=== PATIENT | female | born 1950 | race Asian ===

== ENCOUNTER 2020-04-13 08:04 | Inpatient (IN) | payer OTHER, MEDICAID, SELFPAY ==
[~2020-04-13] VITALS: Ht 157.5 cm; Wt 48.2 kg
[2020-04-13 08:04] VITALS: BP_SYST 114
[2020-04-13] MEDS ORDERED: ONDANSETRON HCL 4 MG/2 ML VIAL IVP ONE (08:30)
[2020-04-13] MEDS ORDERED: PANTOPRAZOLE SODIUM 40 MG/VIAL (PROTONIX) IVP ONE (08:30)
[2020-04-13 08:51] LABS: BASOPHILS % (AUTO) 0.6 % (0.0-2.0); EOSINOPHILS # (AUTO) 0.1 K/uL (0.0-0.4); EOSINOPHILS % (AUTO) 1.2 % (0.0-4.0); HEMOGLOBIN 7.1 g/dL (12.0-16.0); LYMPHOCYTES # (AUTO) 0.7 K/uL (1.0-5.5); LYMPHOCYTES % (AUTO) 13.5 % (20.5-51.5); MEAN CORPUSCULAR HEMOGLOBIN 36 pg (27-31); MEAN CORPUSCULAR HGB CONC 32 % (32-36); MEAN CORPUSCULAR VOLUME 113 fL (79.0-98.0); MONOCYTES # (AUTO) 0.4 K/uL (0.0-1.0); MONOCYTES % (AUTO) 7.9 % (1.7-9.3); NEUTROPHILS # (AUTO) 3.7 K/uL (1.8-7.7); NEUTROPHILS % (AUTO) 76.8 % (40.0-70.0); RED CELL DISTRIBUTION WIDTH 16.5 % (9.0-15.0); WHITE BLOOD COUNT (AUTO) 4.8 K/uL (4.8-10.8)
[2020-04-13 09:07] LABS: CALCIUM 9.8 mg/dL (8.4-11.0)
[2020-04-13 09:08] LABS: INR 1.3 (0.8-1.2); PROTHROMBIN TIME 13.2 SECS (9.5-12.5)
[2020-04-13 09:11] LABS: POTASSIUM 6.3 mmol/L (3.5-5.1)
[2020-04-13 09:12] LABS: CREATININE 8.41 mg/dL (0.55-1.30)
[2020-04-13 09:13] LABS: ALBUMIN 2.8 g/dL (3.4-4.8); TOTAL BILIRUBIN 0.5 mg/dL (0.0-1.0)
[2020-04-13 09:17] LABS: RED BLOOD CELL COUNT(AUTO) 1.96 MIL/uL (4.2-6.2)
[2020-04-13 09:20] LABS: PLATELET COUNT (AUTO) 71 K/uL (130-430)
[2020-04-13] MEDS ORDERED: SODIUM POLYSTYRENE SULFONATE 15 GM/60 ML UDBTL PO ONE (10:00)
[2020-04-13] MEDS ORDERED: DEXTROSE 50% JECT 50 ML DISP.SYRIN IVP ONE (10:00)
[2020-04-13] MEDS ORDERED: INSULIN REGULAR, HUMAN 10 UNITS/0.1 ML INJ IVP ONE (10:00)
[2020-04-13] MEDS ORDERED: PANTOPRAZOLE SODIUM 40 MG/VIAL (PROTONIX) ONE (11:31)
[2020-04-13] MEDS ORDERED: ONDANSETRON HCL 4 MG/2 ML VIAL ONE (11:31)
[2020-04-13] MEDS ORDERED: OCTREOTIDE ACETATE 50 MCG/ML AMP IV ONE (12:00)
[2020-04-13] MEDS: cefTRIAXone 1 GM IVPB PREMIX 50 ML IV SCH (12:56)
[2020-04-13] MEDS: OCTREOTIDE ACETATE 1,250 MCG in NS 250 ML IV SCH (12:59)
[2020-04-13] MEDS ORDERED: NACL 0.9% 1,000 ML IV ONE (13:30)
[2020-04-13] MEDS ORDERED: MORPHINE 4 MG/ML INJ. SYRINGE IVP PRN (14:15)
[2020-04-13] MEDS ORDERED: NALOXONE HCL 0.4 MG/ML AMP (NARCAN) IVP PRN (14:15)
[2020-04-13] MEDS ORDERED: LORazepam 2 MG/ML VIAL IVP PRN (14:15)
[2020-04-13] MEDS ORDERED: ONDANSETRON HCL 4 MG/2 ML VIAL IVP PRN (14:15)
[2020-04-13] MEDS ORDERED: MORPHINE 2 MG/ML INJ. SYRINGE IVP PRN (14:15)
[2020-04-13] MEDS: PANTOPRAZOLE SODIUM 40 MG in NS 50 ML IV SCH ×2 (15:03→20:22)
[2020-04-13] MEDS: EPOETIN ALFA 10,000 UNITS/ML VIAL SUBCUT SCH (18:17)
[2020-04-14] MEDS: PANTOPRAZOLE SODIUM 40 MG in NS 50 ML IV SCH ×5 (01:03→19:58)
[2020-04-14 08:23] LABS: BASOPHILS % (AUTO) 0.8 % (0.0-2.0); EOSINOPHILS # (AUTO) 0.1 K/uL (0.0-0.4); EOSINOPHILS % (AUTO) 1.7 % (0.0-4.0); LYMPHOCYTES # (AUTO) 0.6 K/uL (1.0-5.5); LYMPHOCYTES % (AUTO) 18.8 % (20.5-51.5); MEAN CORPUSCULAR HEMOGLOBIN 35 pg (27-31); MEAN CORPUSCULAR HGB CONC 33 % (32-36); MEAN CORPUSCULAR VOLUME 106 fL (79.0-98.0); MONOCYTES # (AUTO) 0.2 K/uL (0.0-1.0); MONOCYTES % (AUTO) 6.9 % (1.7-9.3); NEUTROPHILS # (AUTO) 2.5 K/uL (1.8-7.7); NEUTROPHILS % (AUTO) 71.8 % (40.0-70.0); PLATELET COUNT (AUTO) 63 K/uL (130-430); WHITE BLOOD COUNT (AUTO) 3.4 K/uL (4.8-10.8)
[2020-04-14] MEDS ORDERED: SIMETHICONE 40 MG/0.6 ML ML ONE (08:32)
[2020-04-14 08:34] LABS: RED BLOOD CELL COUNT(AUTO) 1.98 MIL/uL (4.2-6.2)
[2020-04-14 08:35] LABS: HEMATOCRIT 21.1 % (36-48); HEMOGLOBIN 6.9 g/dL (12.0-16.0)
[2020-04-14 08:40] LABS: INR 1.6 (0.8-1.2); PROTHROMBIN TIME 15.9 SECS (9.5-12.5)
[2020-04-14 08:42] LABS: ALBUMIN 2.3 g/dL (3.4-4.8); CALCIUM 8.2 mg/dL (8.4-11.0); CREATININE 4.59 mg/dL (0.55-1.30); PHOSPHORUS 4.6 mg/dL (2.7-4.5); POTASSIUM 3.5 mmol/L (3.5-5.1); TOTAL BILIRUBIN 0.4 mg/dL (0.0-1.0)
[2020-04-14] MEDS ORDERED: MIDAZOLAM HCL 5 MG/5 ML VIAL ONE (08:42)
[2020-04-14] MEDS ORDERED: MEPERIDINE HCL/PF 100 MG/ML AMP ONE (08:47)
[2020-04-14] MEDS: cefTRIAXone 1 GM IVPB PREMIX 50 ML IV SCH (10:13)
[2020-04-14 12:04] VITALS: BP_SYST 142
[2020-04-14 12:07] VITALS: BP_SYST 142
[2020-04-14 15:33] VITALS: BP_SYST 140
[2020-04-14] MEDS: OCTREOTIDE ACETATE 1,250 MCG in NS 250 ML IV SCH (17:51)
[2020-04-14 18:51] LABS: INR 1.5 (0.8-1.2); PROTHROMBIN TIME 15.5 SECS (9.5-12.5)
[2020-04-14 20:00] VITALS: BP_SYST 138
[2020-04-15 00:12] VITALS: BP_SYST 136
[2020-04-15 07:26] LABS: ALBUMIN 2.8 g/dL (3.4-4.8); CALCIUM 8.9 mg/dL (8.4-11.0); CREATININE 3.9 mg/dL (0.55-1.30); PHOSPHORUS 4.8 mg/dL (2.7-4.5); TOTAL BILIRUBIN 0.5 mg/dL (0.0-1.0)
[2020-04-15 07:27] LABS: BASOPHILS % (AUTO) 0.8 % (0.0-2.0); EOSINOPHILS # (AUTO) 0.1 K/uL (0.0-0.4); HEMATOCRIT 22.5 % (36-48); HEMOGLOBIN 7.8 g/dL (12.0-16.0); LYMPHOCYTES # (AUTO) 0.6 K/uL (1.0-5.5); LYMPHOCYTES % (AUTO) 14.1 % (20.5-51.5); MEAN CORPUSCULAR HEMOGLOBIN 36 pg (27-31); MEAN CORPUSCULAR HGB CONC 35 % (32-36); MEAN CORPUSCULAR VOLUME 102 fL (79.0-98.0); MONOCYTES # (AUTO) 0.3 K/uL (0.0-1.0); MONOCYTES % (AUTO) 6.8 % (1.7-9.3); NEUTROPHILS % (AUTO) 76.3 % (40.0-70.0); RED BLOOD CELL COUNT(AUTO) 2.21 MIL/uL (4.2-6.2); RED CELL DISTRIBUTION WIDTH 19.6 % (9.0-15.0); WHITE BLOOD COUNT (AUTO) 3.9 K/uL (4.8-10.8)
[2020-04-15 08:07] VITALS: BP_SYST 156
[2020-04-15 08:26] LABS: PLATELET COUNT (AUTO) 66 K/uL (130-430)
[2020-04-15] MEDS ORDERED: FERROUS SULFATE 325 MG TABLET.DR PO ONE (09:00)
[2020-04-15] MEDS ORDERED: PANTOPRAZOLE SODIUM 40 MG/VIAL (PROTONIX) IVP ONE (09:00)
[2020-04-15] MEDS ORDERED: PROPRANOLOL HCL 10 MG TABLET (INDERAL) PO ONE (09:00)
[2020-04-15] MEDS: cefTRIAXone 1 GM IVPB PREMIX 50 ML IV SCH (09:19)
[2020-04-15] MEDS: EPOETIN ALFA 10,000 UNITS/ML VIAL SUBCUT SCH (09:19)
[2020-04-15 12:00] VITALS: BP_SYST 154
[2020-04-15 16:00] VITALS: BP_SYST 158
[2020-04-15 19:55] VITALS: BP_SYST 159
[2020-04-15] MEDS: FERROUS SULFATE 325 MG TABLET.DR PO SCH (20:56)
[2020-04-15] MEDS: PROPRANOLOL HCL 10 MG TABLET (INDERAL) PO SCH (20:57)
[2020-04-16 00:34] VITALS: BP_SYST 151
[2020-04-16] MEDS: OCTREOTIDE ACETATE 1,250 MCG in NS 250 ML IV SCH (00:38)
[2020-04-16 08:00] VITALS: BP_SYST 147
[2020-04-16] MEDS: PANTOPRAZOLE SODIUM 40 MG/VIAL (PROTONIX) IVP SCH (10:03)
[2020-04-16] MEDS: cefTRIAXone 1 GM IVPB PREMIX 50 ML IV SCH (10:03)
[2020-04-16] MEDS: FERROUS SULFATE 325 MG TABLET.DR PO SCH ×2 (10:04→22:27)
[2020-04-16] MEDS: PROPRANOLOL HCL 10 MG TABLET (INDERAL) PO SCH ×2 (10:05→22:25)
[2020-04-16 11:35] VITALS: BP_SYST 150
[2020-04-16] MEDS ORDERED: LACTOBACILLUS RHAMNOSUS GG 1 CAP CAPSULE PO ONE (15:00)
[2020-04-16] MEDS ORDERED: metroNIDAZOLE 250 MG TABLET PO ONE (15:00)
[2020-04-16 15:46] VITALS: BP_SYST 165
[2020-04-16 16:19] LABS: HEMATOCRIT 23.7 % (36-48); HEMOGLOBIN 7.7 g/dL (12.0-16.0); MEAN CORPUSCULAR HEMOGLOBIN 34 pg (27-31); MEAN CORPUSCULAR HGB CONC 32 % (32-36); MEAN CORPUSCULAR VOLUME 104 fL (79.0-98.0); PLATELET COUNT (AUTO) 68 K/uL (130-430); RED BLOOD CELL COUNT(AUTO) 2.28 MIL/uL (4.2-6.2); WHITE BLOOD COUNT (AUTO) 3.7 K/uL (4.8-10.8)
[2020-04-16 16:30] LABS: ALBUMIN 2.7 g/dL (3.4-4.8); CALCIUM 8.9 mg/dL (8.4-11.0); CREATININE 6.24 mg/dL (0.55-1.30); PHOSPHORUS 6.9 mg/dL (2.7-4.5); POTASSIUM 5.1 mmol/L (3.5-5.1); TOTAL BILIRUBIN 0.4 mg/dL (0.0-1.0)
[2020-04-16 16:39] LABS: BAND % (MANUAL) 0 % (0-6); BASOPHILS % (MANUAL) 0 % (0-2); EOSINOPHILS % (MANUAL) 1 % (0-7); LYMPHOCYTES % (MANUAL) 17 % (20-46); MONOCYTES % (MANUAL) 4 % (0-11)
[2020-04-16] MEDS: EPOETIN ALFA 10,000 UNITS/ML VIAL SUBCUT SCH (16:59)
[2020-04-16 20:41] VITALS: BP_SYST 133
[2020-04-16] MEDS: LACTOBACILLUS RHAMNOSUS GG 1 CAP CAPSULE PO SCH (22:24)
[2020-04-16] MEDS: metroNIDAZOLE 250 MG TABLET PO SCH (22:24)
[2020-04-17] VITALS: BP_SYST 121
[2020-04-17] MEDS: metroNIDAZOLE 250 MG TABLET PO SCH ×3 (07:13→21:09)
[2020-04-17 07:40] LABS: BASOPHILS % (AUTO) 0.6 % (0.0-2.0); EOSINOPHILS # (AUTO) 0.1 K/uL (0.0-0.4); EOSINOPHILS % (AUTO) 3.9 % (0.0-4.0); HEMATOCRIT 25.6 % (36-48); HEMOGLOBIN 8.6 g/dL (12.0-16.0); LYMPHOCYTES # (AUTO) 0.4 K/uL (1.0-5.5); LYMPHOCYTES % (AUTO) 12.7 % (20.5-51.5); MEAN CORPUSCULAR HEMOGLOBIN 35 pg (27-31); MEAN CORPUSCULAR HGB CONC 34 % (32-36); MEAN CORPUSCULAR VOLUME 103 fL (79.0-98.0); MONOCYTES # (AUTO) 0.2 K/uL (0.0-1.0); NEUTROPHILS # (AUTO) 2.5 K/uL (1.8-7.7); PLATELET COUNT (AUTO) 66 K/uL (130-430); RED BLOOD CELL COUNT(AUTO) 2.48 MIL/uL (4.2-6.2); RED CELL DISTRIBUTION WIDTH 18.8 % (9.0-15.0); WHITE BLOOD COUNT (AUTO) 3.2 K/uL (4.8-10.8)
[2020-04-17 07:54] LABS: CALCIUM 8.9 mg/dL (8.4-11.0); POTASSIUM 4.2 mmol/L (3.5-5.1)
[2020-04-17 07:55] LABS: C-REACTIVE PROTEIN QUANT 0.8 mg/dL (0-0.5); CREATININE 4.12 mg/dL (0.55-1.30)
[2020-04-17 07:57] LABS: NEUTROPHILS % (AUTO) 76.8 % (40.0-70.0)
[2020-04-17 08:19] VITALS: BP_SYST 148
[2020-04-17] MEDS: cefTRIAXone 1 GM IVPB PREMIX 50 ML IV SCH (08:37)
[2020-04-17] MEDS: PANTOPRAZOLE SODIUM 40 MG/VIAL (PROTONIX) IVP SCH (08:37)
[2020-04-17] MEDS: LACTOBACILLUS RHAMNOSUS GG 1 CAP CAPSULE PO SCH ×2 (08:38→21:09)
[2020-04-17] MEDS: FERROUS SULFATE 325 MG TABLET.DR PO SCH ×2 (08:38→21:09)
[2020-04-17] MEDS: PROPRANOLOL HCL 10 MG TABLET (INDERAL) PO SCH ×2 (08:38→21:09)
[2020-04-17 10:07] LABS: ERYTHROCYTE SEDIMENTATION RATE 27 MM/HR (0-20)
[2020-04-17 11:39] VITALS: BP_SYST 100
[2020-04-17] MEDS ORDERED: FLA250 PO (14:20)
[2020-04-17] MEDS ORDERED: Ferrous Sulfate PO (14:20)
[2020-04-17] MEDS ORDERED: LACT1CAP57 PO (14:20)
[2020-04-17] MEDS ORDERED: EPOE1VIA13 SUBCUT (14:20)
[2020-04-17] MEDS ORDERED: PROP10TA10 PO (14:20)
[2020-04-17] MEDS ORDERED: PRO40 PO (14:20)
[2020-04-17 15:38] VITALS: BP_SYST 148
[2020-04-17 20:00] VITALS: BP_SYST 158
[2020-04-18 02:04] VITALS: BP_SYST 148
[2020-04-18] MEDS: metroNIDAZOLE 250 MG TABLET PO SCH ×3 (06:23→21:25)
[2020-04-18 08:00] VITALS: BP_SYST 161
[2020-04-18] MEDS: cefTRIAXone 1 GM IVPB PREMIX 50 ML IV SCH (09:32)
[2020-04-18] MEDS: PANTOPRAZOLE SODIUM 40 MG/VIAL (PROTONIX) IVP SCH (09:32)
[2020-04-18] MEDS: LACTOBACILLUS RHAMNOSUS GG 1 CAP CAPSULE PO SCH ×2 (09:32→21:25)
[2020-04-18] MEDS: FERROUS SULFATE 325 MG TABLET.DR PO SCH ×2 (09:32→21:25)
[2020-04-18] MEDS: PROPRANOLOL HCL 10 MG TABLET (INDERAL) PO SCH ×2 (09:33→21:25)
[2020-04-18 12:30] VITALS: BP_SYST 160
[2020-04-18 16:18] VITALS: BP_SYST 148
[2020-04-18 20:00] VITALS: BP_SYST 162
[2020-04-19] VITALS: BP_SYST 158
[2020-04-19] MEDS: metroNIDAZOLE 250 MG TABLET PO SCH ×3 (06:53→22:57)
[2020-04-19 08:00] VITALS: BP_SYST 147
[2020-04-19 08:06] LABS: BASOPHILS % (AUTO) 0.6 % (0.0-2.0); EOSINOPHILS # (AUTO) 0.2 K/uL (0.0-0.4); EOSINOPHILS % (AUTO) 4.3 % (0.0-4.0); HEMATOCRIT 26.8 % (36-48); LYMPHOCYTES # (AUTO) 0.6 K/uL (1.0-5.5); LYMPHOCYTES % (AUTO) 13.9 % (20.5-51.5); MEAN CORPUSCULAR HEMOGLOBIN 35 pg (27-31); MEAN CORPUSCULAR HGB CONC 34 % (32-36); MEAN CORPUSCULAR VOLUME 105 fL (79.0-98.0); MONOCYTES # (AUTO) 0.3 K/uL (0.0-1.0); MONOCYTES % (AUTO) 5.7 % (1.7-9.3); NEUTROPHILS # (AUTO) 3.3 K/uL (1.8-7.7); NEUTROPHILS % (AUTO) 75.5 % (40.0-70.0); PLATELET COUNT (AUTO) 83 K/uL (130-430); RED BLOOD CELL COUNT(AUTO) 2.56 MIL/uL (4.2-6.2); RED CELL DISTRIBUTION WIDTH 19.4 % (9.0-15.0); WHITE BLOOD COUNT (AUTO) 4.4 K/uL (4.8-10.8)
[2020-04-19 08:21] LABS: ALBUMIN 2.8 g/dL (3.4-4.8); CALCIUM 9.3 mg/dL (8.4-11.0); CREATININE 7.27 mg/dL (0.55-1.30); PHOSPHORUS 8.2 mg/dL (2.7-4.5); TOTAL BILIRUBIN 0.6 mg/dL (0.0-1.0)
[2020-04-19 08:42] LABS: POTASSIUM 6.3 mmol/L (3.5-5.1)
[2020-04-19] MEDS: PANTOPRAZOLE SODIUM 40 MG/VIAL (PROTONIX) IVP SCH (09:16)
[2020-04-19] MEDS: cefTRIAXone 1 GM IVPB PREMIX 50 ML IV SCH (09:16)
[2020-04-19] MEDS: PROPRANOLOL HCL 10 MG TABLET (INDERAL) PO SCH ×2 (09:17→20:35)
[2020-04-19] MEDS: FERROUS SULFATE 325 MG TABLET.DR PO SCH ×2 (09:17→20:35)
[2020-04-19] MEDS: LACTOBACILLUS RHAMNOSUS GG 1 CAP CAPSULE PO SCH ×2 (09:17→20:35)
[2020-04-19 12:45] VITALS: BP_SYST 110
[2020-04-19] MEDS: EPOETIN ALFA 10,000 UNITS/ML VIAL SUBCUT SCH (15:39)
[2020-04-19 16:27] VITALS: BP_SYST 105
[2020-04-19 20:00] VITALS: BP_SYST 156
[2020-04-19] MEDS: ALUMINUM HYDROXIDE 1920 mg/30 ML UDC PO SCH (20:34)
[2020-04-20 00:31] VITALS: BP_SYST 144
[2020-04-20 04:25] VITALS: BP_SYST 138
[2020-04-20] MEDS: metroNIDAZOLE 250 MG TABLET PO SCH ×2 (06:01→14:31)
[2020-04-20 07:45] LABS: BASOPHILS % (AUTO) 0.7 % (0.0-2.0); EOSINOPHILS # (AUTO) 0.1 K/uL (0.0-0.4); EOSINOPHILS % (AUTO) 3.3 % (0.0-4.0); HEMOGLOBIN 8.6 g/dL (12.0-16.0); LYMPHOCYTES # (AUTO) 0.5 K/uL (1.0-5.5); LYMPHOCYTES % (AUTO) 14.1 % (20.5-51.5); MEAN CORPUSCULAR HEMOGLOBIN 35 pg (27-31); MEAN CORPUSCULAR HGB CONC 33 % (32-36); MEAN CORPUSCULAR VOLUME 106 fL (79.0-98.0); MONOCYTES # (AUTO) 0.3 K/uL (0.0-1.0); MONOCYTES % (AUTO) 8.9 % (1.7-9.3); NEUTROPHILS # (AUTO) 2.7 K/uL (1.8-7.7); PLATELET COUNT (AUTO) 80 K/uL (130-430); RED BLOOD CELL COUNT(AUTO) 2.45 MIL/uL (4.2-6.2); RED CELL DISTRIBUTION WIDTH 20.9 % (9.0-15.0); WHITE BLOOD COUNT (AUTO) 3.7 K/uL (4.8-10.8)
[2020-04-20 08:00] LABS: CALCIUM 8.8 mg/dL (8.4-11.0); CREATININE 5.07 mg/dL (0.55-1.30); PHOSPHORUS 6.2 mg/dL (2.7-4.5); POTASSIUM 4.2 mmol/L (3.5-5.1)
[2020-04-20] MEDS: ALUMINUM HYDROXIDE 1920 mg/30 ML UDC PO SCH ×3 (08:30→18:03)
[2020-04-20] MEDS: LACTOBACILLUS RHAMNOSUS GG 1 CAP CAPSULE PO SCH (08:46)
[2020-04-20] MEDS: PANTOPRAZOLE SODIUM 40 MG/VIAL (PROTONIX) IVP SCH (08:46)
[2020-04-20] MEDS: PROPRANOLOL HCL 10 MG TABLET (INDERAL) PO SCH (08:47)
[2020-04-20] MEDS: FERROUS SULFATE 325 MG TABLET.DR PO SCH (08:47)
[2020-04-20 11:33] VITALS: BP_SYST 164
[2020-04-20] MEDS ORDERED: cefTRIAXone 1 GM IVPB PREMIX 50 ML IV SCH (14:00)
[2020-04-20 15:46] VITALS: BP_SYST 156
[2020-04-20 18:12] VITALS: BP_SYST 156
== END 2020-04-20 20:15 | DRG 441 ==
LOC: SED 08:04 → STU 10:08 → SMU 04-14 12:13
PROVIDERS: ADMIT Preventive Medicine Preventive Medicine/Occupational Environmental Medicine; ATTEND Preventive Medicine Preventive Medicine/Occupational Environmental Medicine
PROC: 5A1D70Z Performance of Urinary Filtration, Intermittent, Less than 6 Hours Per Day (ICD-10-PCS; 2020-04-13)
PROC: 30233N1 Transfusion of Nonautologous Red Blood Cells into Peripheral Vein, Percutaneous Approach (ICD-10-PCS; 2020-04-13)
PROC: 5A1D70Z Performance of Urinary Filtration, Intermittent, Less than 6 Hours Per Day (ICD-10-PCS; 2020-04-14)
PROC: 0DJ08ZZ Inspection of Upper Intestinal Tract, Via Natural or Artificial Opening Endoscopic (ICD-10-PCS; principal; 2020-04-14 09:00)
PROC: 5A1D70Z Performance of Urinary Filtration, Intermittent, Less than 6 Hours Per Day (ICD-10-PCS; 2020-04-16)
PROC: 5A1D70Z Performance of Urinary Filtration, Intermittent, Less than 6 Hours Per Day (ICD-10-PCS; 2020-04-19)
DX: K76.6 Portal hypertension (principal); N18.6 End stage renal disease; E43 Unspecified severe protein-calorie malnutrition; A04.72 Enterocolitis due to Clostridium difficile, not specified as recurrent; E87.1 Hypo-osmolality and hyponatremia; I13.11 Hypertensive heart and chronic kidney disease without heart failure, with stage 5 chronic kidney disease, or end stage renal disease; D61.818 Other pancytopenia; Z68.1 Body mass index [BMI] 19.9 or less, adult; K31.89 Other diseases of stomach and duodenum; E03.9 Hypothyroidism, unspecified; E11.22 Type 2 diabetes mellitus with diabetic chronic kidney disease; E11.65 Type 2 diabetes mellitus with hyperglycemia; E87.5 Hyperkalemia; D63.1 Anemia in chronic kidney disease; E83.39 Other disorders of phosphorus metabolism; E83.41 Hypermagnesemia; K70.40 Alcoholic hepatic failure without coma; K70.31 Alcoholic cirrhosis of liver with ascites; E88.09 Other disorders of plasma-protein metabolism, not elsewhere classified; K80.20 Calculus of gallbladder without cholecystitis without obstruction; K29.70 Gastritis, unspecified, without bleeding; Z99.2 Dependence on renal dialysis; Z03.818 Encounter for observation for suspected exposure to other biological agents ruled out
CPT/HCPCS: 36415; 43235; 71045; 80048; 80053; 83735-TC; 84100-TC; 85007; 85025; 85027; 85610-TC; 85651-TC; 85730-TC; 86140; 86886; 86900; 86901; 86920; 87230-TC; 90935; 90937; 93005; 96374; 96375; 97110-GP; 97112-GP; 97530-GP; 99285; C9113; G0378; J0696; J0885; J1815; J2175; J2250; J2354; J2405; J7030; J7050; P9021; U0003-CS